=== PATIENT | male | born 1950 | race Caucasian/White ===

== ENCOUNTER 2023-12-16 09:34 | Emergency (ER) | payer MEDICARE, OTHER, SELFPAY ==
[2023-12-16 09:53] VITALS: BP 159/79; PULSE 89; RESP 18; TEMP 36.7; O2SAT 96; BMI 28.4
--- NOTE | 2023-12-16 11:35 | ED_ITS ---
HPI - Back Pain/Injury General Chief Complaint: Back Pain/Injury Stated Complaint: L3-4 Time Seen by Provider: 12/16/23 11:34 Source: patient History of Present Illness HPI Narrative: 73M with history of known L3/L4 problem presents with his in the chief comp laint of worsening right low back pain with radiation into his right hip over the past few days. It started after lifting heavy boxes when he felt a pulling sensation and now he has increasing pain in certain positions, with walking with lying flat. He denies any direct trauma, fever or chills and takes no blood thinners. He denies lower extremity weakness, loss of control of bowel or bladder, fever or chills or footdrop. He has a recent MRI from September demonstrating disc a bulging disc at L3-L4. He is otherwise well and free of complaint Related Data Previous Rx's Medication Instructions Recorded gabapentin 300 mg capsule 300 mg PO BEDTIME #14 caps 12/16/23 hydrocodone 5 mg-acetaminophen 325 1 tab PO Q4-6H PRN pain #10 tabs 12/16/23 mg tablet methylprednisolone 4 mg tablets in See Rx Instructions PO .COMPLEX 12/16/23 a dose pack (Medrol (Tanmay)) #21 ea Allergies Allergy/AdvReac Type Severity Reaction Status Date / Time ragweed pollen Allergy Sneezing Verified 12/16/23 10:01 Review of Systems Review of Systems Narrative: GENERAL: Denies chills, fatigue, malaise, fever, sweats. HEENT: Denies sinus pain, ear pain, sore throat, difficulty swallowing, dizziness. RESPIRATORY: Denies dyspnea, cough, wheezing, hemoptysis, sputum. CARDIOVASCULAR: Denies chest pain, palpitations, orthopnea, edema, GASTROINTESTINAL: Denies nausea, vomiting, abdominal pain, diarrhea, constipatio n, melena. : Denies dysuria, frequency, incontinence, hematuria, urinary retention. MUSCULOSKELETAL: See HPI SKIN: Denies rash, skin lesions, or other NEUROLOGIC: See HPI PSYCHIATRIC: No concerning psychosocial issues. 12 point review of systems is negative except for those stated above Patient History Social History Smoking Status: Never smoker Smoking Status: Never smoker alcohol intake frequency: a few times a week Substance Use Type: does not use Exam Narrative Exam Narrative: GENERAL: [73] year old patient appears stated age. Well-developed patient, in mild distress. HEAD: Atraumatic. Normocephalic. EYES: Pupils equal round and reactive. Extraocular motions intact. No scleral icterus. No injection or drainage. ENT: Nose without bleeding, purulent drainage. Throat without erythema, tonsillar hypertrophy or exudate. Airway patent. NECK: Trachea midline. Non tender CARDIOVASCULAR: Regular rate and rhythm without murmurs, gallops, or rubs. RESPIRATORY: Clear to auscultation. Breath sounds equal bilaterally. No wheezes, rales, or rhonchi. GASTROINTESTINAL: Abdomen soft, non-tender, nondistended. EXTREMITIES: No edema or joint tenderness. BACK: No saddle anesthesia. Bilateral 5/5 muscle strength, no measurable weakness. Bilateral patellar reflexes 1+ NEURO: AOx3. SKIN: No rash or erythema of visible areas Initial Vital Signs Initial Vital Signs: Vital Signs Temperature 98.1 F 12/16/23 09:53 Pulse Rate 89 12/16/23 09:53 Respiratory Rate 18 12/16/23 09:53 Blood Pressure 159/79 H 12/16/23 09:53 Pulse Oximetry 96 12/16/23 09:53 Oxygen Delivery Method Room Air 12/16/23 09:53 Course Vital Signs Vital signs: Vital Signs - 8 hr 12/16/23 09:53 Temperature 98.1 F Pulse Rate 89 Respiratory Rate 18 Blood Pressure 159/79 H Pulse Oximetry 96 Oxygen Delivery Method Room Air MDM - Back Pain/Injury MDM Narrative Medical decision making narrative: [73] year old patient presents with low back pain and radiation down R leg Multiple etiologies for patient's symptoms considered including, but not limited to: [Lumbar radiculopathy from disc problem versus cauda equina versus epidural abscess versus hematoma versus other] Prior Charts reviewed in our EMR: None available Primary Historian: patient Labs: Non indicated. Imaging reviewed: patient brought his MRI from September in [place] Patient's symptoms improved over duration of stay with above-stated therapies. No red flag findings suggestive of a neurosurgical emergency. Prescription sent on his behalf, extensive return precautions discussed and questions answered to his apparent satisfaction Findings and discharge diagnosis discussed with patient/family followed by verbalization of understanding Return precautions discussed with patient/family whom verbalize understanding of diagnosis and plan Discharge Plan Departure Patient Disposition: Home Clinical Impression: Acute lumbar radiculopathy Instructions: DI for Lumbar Radiculopathy Activity Restrictions/Additional Instructions: *You have been diagnosed with [ acute Right lumbar radiculopathy] *What to do: *Please continue to take your regular medications as directed. [x ] New medication prescriptions sent to your pharmacy: [[facility] ] [ ] New medication written as a paper prescription [ ] No new medications given *Please follow up with your primary care provider in 2-3 days, call for an appointment. Let them know you were seen in the Emergency Department and that we ask that you be seen in follow up. We will electronically transmit a record of today's note if your PCP is in our system *If you do not have a primary care provider please contact [facility] Resource line at [phone]. They will ask some questions about your medical history and help get you set up with a doctor in the community. *Return to Emergency Department if you should have any new, worsening or concerning symptoms, such as [fever greater than 101 F, shaking chills, worsening pain, persistent vomiting or other bothersome symptoms] Prescriptions: New hydrocodone-acetaminophen 5-325 mg tablet 1 tab PO Q4-6H PRN (Reason: pain) Qty: 10 0RF gabapentin 300 mg capsule 300 mg PO BEDTIME Qty: 14 0RF methylprednisolone [Medrol (Tanmay)] 4 mg tablets,dose pack See Rx Instructions .ROUTE .COMPLEX Qty: 21 0RF Rx Instructions: orally per package directions Stand Alone Forms: Patient Portal/API
[2023-12-16] MEDS: HYDROCODONE/ACET 5/325 TABLET 1 TAB PO (12:05)
[2023-12-16] MEDS: predniSONE 20 MG TABLET 40 MG PO (12:05)
[2023-12-16] MEDS: GABAPENTIN 300 MG CAPSULE PO (12:05)
[2023-12-16 12:21] VITALS: BP 140/82
== END 2023-12-16 12:11 | disposition home or self-care (01) ==
LOC: ED 12:26
PROVIDERS: Emergency Provider Emergency Medicine
DX: M54.16 Radiculopathy, lumbar region (principal)
CPT/HCPCS: 99283